=== PATIENT | female | born 1990 ===

== ENCOUNTER 2020-10-31 00:54 | Inpatient (IN) | payer MEDICAID ==
[2020-10-31] VITALS (8 sets, daily range): BP systolic 122–139; BP diastolic 65–96
[~2020-10-31] VITALS: Ht 162.6 cm; Wt 81.6 kg
[2020-10-31] MEDS ORDERED: ceFAZolin 1GM/50ML 50 ML IV ONE (01:15)
[2020-10-31] MEDS ORDERED: LACTATED RINGER'S 1,000 ML IV ONE (01:15)
[2020-10-31] MEDS ORDERED: BETAMETHASONE ACET (6MG/ML) 5ML VIAL IM ONE (01:15)
[2020-10-31] MEDS: TERBUTALINE SULFATE 1 MG/ML 1ML VIAL SC SCH ×2 (01:23→01:35)
[2020-10-31 01:25] LABS: Basophils # (auto) 0.1 10 ^3/uL (0-0.2); Basophils % (auto) 0.6 % (0.0-2.0); Eosinophils # (auto) 0.1 10 ^3/uL (0-0.8); Eosinophils % (auto) 0.5 % (0.0-7.0); Hematocrit 36.1 % (36.0-46.0); Hemoglobin 12.2 g/dL (12.2-16.2); Lymphocytes # (auto) 3.7 10 ^3/uL (0.4-5.4); Lymphocytes % (auto) 18.8 % (10.0-50.0); Mean Corpuscular Hemoglobin 30.3 pg (28.0-32.0); Mean Corpuscular Hgb Conc. 33.8 g/dL (32.0-36.0); Mean Corpuscular Volume 89.6 fL (80.0-100.0); Monocytes # (auto) 1.3 10 ^3/uL (0-1.3); Monocytes % (auto) 6.8 % (0.0-12.0); Neutrophils # (auto) 14.3 10 ^3/uL (1.6-8.6); Neutrophils % (auto) 73.3 % (37.0-80.0); Red Blood Cells 4.02 10^6/uL (4.0-5.20); Red Cell Distribution Width 14.3 % (11.8-14.3); White Blood Cell 19.6 10^3/uL (4.4-10.8)
[2020-10-31] MEDS ORDERED: SUCCINYLCHOLINE CHLORIDE 20 MG/ML 10ML VIAL IV ONE (01:37)
[2020-10-31] MEDS ORDERED: TETRACAINE 1% INJ 2 ML VIAL IJ ONE (01:37)
[2020-10-31] MEDS ORDERED: LIDOCAINE 1% HCL (LOCAL ANESTH.) INJ 20ML MDV ONE (01:37)
[2020-10-31] MEDS ORDERED: fentaNYL CITRATE 100 MCG/2 ML VL ONE (01:38)
[2020-10-31] MEDS ORDERED: MORPHINE SULF(PF) 0.5MG/ML 10ML VIAL ONE (01:38)
[2020-10-31] MEDS ORDERED: ONDANSETRON HCL 4 MG/2 ML VIAL ONE (01:39)
[2020-10-31] MEDS ORDERED: oxyTOCIN 10 UNIT/ML 10ML VIAL ONE (01:39)
[2020-10-31] MEDS ORDERED: BUPIVACAINE/DEXTROSE MPF 0.75% 2 ML AMP IT ONE (01:39)
[2020-10-31] MEDS ORDERED: SODIUM CHLORIDE LOCK 20 ML ONE (01:39)
[2020-10-31] MEDS ORDERED: MIDAZOLAM HCL 1MG/1ML-2 ML VIAL ONE (01:39)
[2020-10-31] MEDS ORDERED: ePHEDrine SULFATE 50 MG/ML AMP ONE (01:39)
[2020-10-31] MEDS ORDERED: EPINEPHrine HCL 1 MG/1 ML AMP ONE (01:39)
[2020-10-31 01:41] LABS: Urine Bacteria NONE SEEN /hpf (None Seen); Urine Blood 2+ /uL (Negative); Urine Specific Gravity 1.013 (1.001-1.035); Urine WBC 2 /hpf (0 - 5); Urine WBC Clumps PRESENT /hpf (None Seen)
[2020-10-31 01:46] LABS: Albumin 2.4 g/dL (3.4-5.0); BUN/Creatinine Ratio 11.4; Calcium 8.9 mg/dL (8.5-10.1); Potassium 3.9 mmol/L (3.5-5.1)
[2020-10-31 01:47] LABS: Alcohol, Urine < 3.0 mg/dL (0-10); Amphetamine Screen, Urine NEGATIVE (NEGATIVE); Barbiturate Scree,Urine NEGATIVE (NEGATIVE); Benzodiazephine Screen, Urine NEGATIVE (NEGATIVE); Cannabinoid Screen, Urine NEGATIVE (NEGATIVE); Cocaine Screen, Urine POSITIVE (NEGATIVE); Opiate Scree,Urine NEGATIVE (NEGATIVE); Phencyclidine Screen, Urine NEGATIVE (NEGATIVE)
[2020-10-31 01:48] LABS: Bilirubin, Total 0.2 mg/dL (0.2-1.0); Total Protein 6.8 g/dL (6.4-8.2)
[2020-10-31] MEDS ORDERED: PROPOFOL 10 MG/ML 20 ML IV ONE (01:57)
[2020-10-31] MEDS ORDERED: ROCURONIUM 10MG/ML 10ML VIAL IV ONE (01:57)
[2020-10-31 02:11] LABS: INR 0.92 (0.9-1.15); Partial Thromboplastin Time 27.6 sec (23.0-31.2)
[2020-10-31] MEDS ORDERED: MEPERIDINE HCL (25 MG/ML) 1ML VIAL ONE (02:39)
[2020-10-31] MEDS ORDERED: NEOSTIGMINE 1 MG/ML INJ (10mg/10ML VIAL) ONE (02:40)
[2020-10-31] MEDS ORDERED: GLYCOPYRROLATE 0.2 MG/ML 1ML VIAL ONE (02:40)
[2020-10-31] MEDS ORDERED: MORPHINE SULFATE 4 MG/ML SYR/VIAL IV PRN (03:00)
[2020-10-31] MEDS ORDERED: KETOROLAC TROMETH 30 MG/ML 1ML VIAL IV ONE (03:00)
[2020-10-31] MEDS ORDERED: ONDANSETRON HCL 4 MG/2 ML VIAL IV PRN (03:00)
[2020-10-31] MEDS ORDERED: METOCLOPRAMIDE HCL 5MG/ml INJ 2ml VIAL IV PRN (03:00)
[2020-10-31] MEDS ORDERED: LACT. RINGERS/OXYTOCIN 20UNITS 1,000 ML IV ONE (03:00)
[2020-10-31] MEDS: HYDROmorphone HCL 2 MG/ML VL IV PRN ×3 (03:05→03:25)
[2020-10-31] MEDS: LACTATED RINGER'S 1,000 ML IV SCH ×2 (05:17→15:16)
[2020-10-31] MEDS ORDERED: GUM (CHEWING) 1 GUM CHEW CHEW ONE (09:00)
[2020-10-31] MEDS ORDERED: ceFAZolin 1GM/50ML 50 ML IV SCH (09:00)
[2020-10-31] MEDS ORDERED: KETOROLAC TROMETH 30 MG/ML 1ML VIAL IV PRN (09:30)
[2020-10-31] MEDS ORDERED: ACETAMINOPHEN IV 1000 MG/100ML (10MG/ML) IV PRN (09:45)
[2020-10-31] MEDS: MORPHINE SULFATE 4 MG/ML SYR/VIAL IV PRN ×2 (14:10→20:08)
[2020-10-31] MEDS: ceFAZolin 1GM/50ML 50 ML IV SCH (17:08)
[2020-10-31 22:23] LABS: Hemoglobin 11.9 g/dL (12.2-16.2)
[2020-10-31 22:26] LABS: Mean Corpuscular Hemoglobin 31.5 pg (28.0-32.0); Red Blood Cells 3.78 10^6/uL (4.0-5.20); Red Cell Distribution Width 14.4 % (11.8-14.3)
[2020-10-31 22:35] LABS: White Blood Cell 30.6 10^3/uL (4.4-10.8)
[2020-10-31 22:37] LABS: Basophils % (manual) 0 (0.0-2.0); Blast Cells 0; Eosinophils % (manual) 0 (0-7); Metamyelocytes % 0; Myelocytes % 0; Promyelocytes % 0; Reactive Lymphocytes 0
[2020-10-31 23:04] LABS: Band Neutrophils % (manual) 11; Lymphocytes % (manual) 8 (10.0-50.0); Monocytes % (manual) 3 (0-12)
[2020-11-01] MEDS: ceFAZolin 1GM/50ML 50 ML IV SCH ×3 (01:17→16:38)
[2020-11-01 03:15] VITALS: BP 124/73
[2020-11-01] MEDS ORDERED: BISACODYL 10 MG RECT SUPP PR PRN (04:00)
[2020-11-01] MEDS: SIMETHICONE 80 MG CHEWABLE TABLET PO SCH ×3 (05:51→22:18)
[2020-11-01] MEDS: IBUPROFEN 800 MG TAB PO PRN ×2 (06:38→15:25)
[2020-11-01 07:07] LABS: RPR Non Reactive (Non Reactive)
[2020-11-01 07:09] LABS: Basophils # (auto) 0 10 ^3/uL (0-0.2); Basophils % (auto) 0.3 % (0.0-2.0); Eosinophils # (auto) 0.4 10 ^3/uL (0-0.8); Eosinophils % (auto) 3.4 % (0.0-7.0); Hematocrit 27.3 % (36.0-46.0); Hemoglobin 9.7 g/dL (12.2-16.2); Lymphocytes # (auto) 2.1 10 ^3/uL (0.4-5.4); Lymphocytes % (auto) 18.7 % (10.0-50.0); Mean Corpuscular Hemoglobin 33.7 pg (28.0-32.0); Mean Corpuscular Hgb Conc. 35.6 g/dL (32.0-36.0); Mean Corpuscular Volume 94.8 fL (80.0-100.0); Monocytes # (auto) 0.6 10 ^3/uL (0-1.3); Monocytes % (auto) 5.7 % (0.0-12.0); Neutrophils # (auto) 7.9 10 ^3/uL (1.6-8.6); Neutrophils % (auto) 71.9 % (37.0-80.0); Red Blood Cells 2.88 10^6/uL (4.0-5.20); Red Cell Distribution Width 13.6 % (11.8-14.3)
[2020-11-01 07:30] VITALS: BP 118/82
[2020-11-01] MEDS: DOCUSATE SOD 100 MG CAP PO SCH ×2 (09:46→22:18)
[2020-11-01] MEDS: DOCUSATE CALCIUM 240 MG CAP PO SCH (09:46)
[2020-11-01] MEDS: HYDROcodone-ACET 5/325MG TAB PO PRN ×3 (09:55→22:18)
[2020-11-01 11:30] VITALS: BP 118/82
[2020-11-01 15:30] VITALS: BP 125/83
[2020-11-01 19:00] VITALS: BP 120/95
[2020-11-01 23:00] VITALS: BP 121/65
[2020-11-02] MEDS: ceFAZolin 1GM/50ML 50 ML IV SCH (01:56)
[2020-11-02 03:30] VITALS: BP 112/74
[2020-11-02] MEDS: IBUPROFEN 800 MG TAB PO PRN (04:22)
[2020-11-02] MEDS: HYDROcodone-ACET 5/325MG TAB PO PRN ×4 (05:54→20:44)
[2020-11-02] MEDS: SIMETHICONE 80 MG CHEWABLE TABLET PO SCH ×4 (05:54→23:21)
[2020-11-02 07:20] VITALS: BP 106/65
[2020-11-02] MEDS: DOCUSATE CALCIUM 240 MG CAP PO SCH (09:56)
[2020-11-02] MEDS: DOCUSATE SOD 100 MG CAP PO SCH ×2 (09:56→22:00)
[2020-11-02 11:04] VITALS: BP 119/77
[2020-11-02 15:07] VITALS: BP 130/73
[2020-11-02 18:31] VITALS: BP 127/72
[2020-11-02 23:21] VITALS: BP 133/73
[2020-11-03 03:30] VITALS: BP 132/70
[2020-11-03] MEDS: HYDROcodone-ACET 5/325MG TAB PO PRN (04:07)
[2020-11-03 07:00] VITALS: BP 133/75
[2020-11-03 08:00] VITALS: BP 129/78
[2020-11-03] MEDS ORDERED: HYDR1TAB97 PO (09:23)
[2020-11-03] MEDS ORDERED: DOCU-94 PO (09:25)
[2020-11-03] MEDS ORDERED: IBUP600T27 PO (09:25)
== END 2020-11-03 10:23 | disposition home or self-care (01) | DRG 540 ==
LOC: LDRP 00:54
PROVIDERS: ADMIT Obstetrics & Gynecology; ATTEND Obstetrics & Gynecology
PROC: 10D00Z1 Extraction of Products of Conception, Low, Open Approach (ICD-10-PCS; principal; 2020-10-31 01:53)
DX: O42.913 Preterm premature rupture of membranes, unspecified as to length of time between rupture and onset of labor, third trimester (principal); O32.1XX0 Maternal care for breech presentation, not applicable or unspecified; O77.0 Labor and delivery complicated by meconium in amniotic fluid; Z37.0 Single live birth; Z3A.34 34 weeks gestation of pregnancy; Z20.822 Contact with and (suspected) exposure to COVID-19
CPT/HCPCS: 36415; 59025; 76805; 80053; 80307; 81001; 85007; 85025; 85027; 85049; 85610; 85730; 86592; 86850; 86900; 86901; 87040; 87426; 94760; 96360; 96361; 96365; 96372; G0378; J0131; J0171; J0330; J0690; J1885; J2001; J2250; J2405; J2590; J2704